=== PATIENT | female | born 1970 | race Caucasian/White ===

== ENCOUNTER 2021-02-12 06:45 | Emergency (ER) | payer MEDICAID, SELFPAY ==
--- NOTE | 2021-02-12 06:46 | EKG12_ITS ---
Test Reason : CHEST PAIN Blood Pressure : / mmHG Vent. Rate : 072 BPM Atrial Rate : 072 BPM P-R Int : 138 ms QRS Dur : 076 ms QT Int : 416 ms P-R-T Axes : 056 059 025 degrees QTc Int : 455 ms Normal sinus rhythm Normal ECG Confirmed by KASH COLBERT, PRAMOD ([id number]), publishing editor DRAKE SIMON ([id number]) on 02/13/2021 12:48:54 PM Referred By: RAMIRO Confirmed By:ROSA HEWITT MD
[2021-02-12 06:48] VITALS: BP 122/96; PULSE 74; RESP 26; TEMP 35.9; O2SAT 96; BMI 23.5
--- NOTE | 2021-02-12 06:48 | NURSING ---
NO OLD EKGS
[2021-02-12 06:54] VITALS: O2SAT 100
[2021-02-12 06:59] LABS: Absolute Lymphocyte Count 4.65 X10^3/uL (0.83-4.51); Absolute Neutrophil Count 5.5 X10^3/uL (2.0-7.7); Basophil# 0.06 X10^3/uL; Basophil% 0.5 % (0-1); Eosinophil# 0.17 X10^3/uL; Eosinophils% 1.5 % (0-5); Hematocrit 42.2 % (37-47); Hemoglobin 14.2 g/dL (12.0-15.0); Lymphocyte # 4.65 X10^3/ul (0.83-4.51); Lymphocyte % 41.7 % (19-41); Mean Corp Hgb Conc 33.6 g/dL (32-36); Mean Corpuscular Hgb 27.4 pg (27.0-32.0); Mean Corpuscular Volume 81.5 fL (81-99); Mean Platelet Vol. 9.5 fl (6.2-12.0); Monocyte# 0.68 X10^3/uL; Monocyte% 6.1 % (0-10); NRBC Flagged by Analyzer 0 % (0-5); Neutrophil # 5.54 X10^3/uL (2.7-7.7); Neutrophil % 49.8 % (47-70); Platelet Count 354 K/mm3 (150-450); RBC Distribution Width CV 12.3 % (11.6-14.6); RBC Distribution Width SD 36.4 fl (35.1-43.9); Red Blood Count 5.18 M/mm3 (4.2-5.4); White Blood Count 11.1 K/mm3 (4.4-11.0)
--- NOTE | 2021-02-12 07:05 | RAD_ITS ---
STUDY: X-RAY CHEST REASON FOR EXAM: Female, 50 years old. acute onset cp, radiates to the back TECHNIQUE: Single AP portable view of the chest. COMPARISON: None. FINDINGS: There are no confluent pulmonary infiltrates. There is no demonstrated pleural abnormality. Normal size heart. Normal mediastinum and speedy. Normal visualized aortic arch and descending thoracic aorta. There are no demonstrated acute fractures or destructive bone lesions. There is no demonstrated abnormality of the visualized soft tissue structures of the upper abdomen. RAD/Chest 1 View (Portable) IMPRESSION: Normal x-ray examination of the chest. Electronically Signed: Wilner Pop MD at 7:36 EDT , Service support ,
--- NOTE | 2021-02-12 07:12 | CT_ITS ---
STUDY: CTA CHEST REASON FOR EXAM: Female, 50 years old. CHEST PAIN RADIATION DOSAGE (If Supplied By Facility): CTDIvol = ( 9.1 ) mGy, DLP = ( 155.11 ) mGycm TECHNIQUE: The examination was performed with the intravenous administration of IV 100mL Isovue-370. Post-processing of the angiographic images was performed, with multiplanar reformation and 3D reconstruction. Individualized dose optimization techniques were used for this CT. COMPARISON: None. FINDINGS: Normal enhancement of the main pulmonary artery and right and left pulmonary arteries. Normal enhancement of the bilateral peripheral pulmonary arteries. There is no demonstrated pulmonary embolism. Normal thoracic aorta and visualized great vessels. There is no demonstrated aortic dissection. Normal heart and pericardium. Normal mediastinum. Normal hilar regions. Normal visualized trachea and bronchi. The lungs are well expanded. Normal pulmonary parenchyma. Normal pleura. Normal chest wall structures. Normal osseous structures. No significant incidental abnormality of the visualized upper abdomen. CT/CTA Chest W/WO Contrast IMPRESSION: No central or segmental pulmonary embolism. Electronically Signed: Nicolas Cheema MD ([place]) at 8:09 EDT , Service support ,
--- NOTE | 2021-02-12 07:14 | ED.VIS.CHEST ---
HPI History of Present Illness Chief Complaint: Chest Pain Informant: patient Onset/Context/Timing Onset: Today and Hours Activity at onset: sudden Timing: Continuous Quality: Positive for Burning and Sharp Location: Substernal Current Severity: Moderate Maximum Severity: Moderate Worsened By: Nothing Relieved By: Nothing Narrative Narrative: 50-year-old female without any significant past medical history. No prior cardiac history no prior PE risk factors for PE. States she awoke at 530 this morning with midsternal chest pain radiating into her back. She denies any radiation to her jaw or arms. Associated nausea and diaphoresis. Mild shortness of breath. She denies any recent illness. She denies any recent exertional chest pain or shortness of breath. She denies any history of DVT or PE. She denies any recent travel, surgery or immobilization. She states the pain is midsternal and lower to the epigastric region. No history of reflux or pancreatitis. No gallbladder or liver history. She denies any melena. Prior Similar Symptoms: No Recent Illness/Hospitalization: No CVD Risk Factors: Negative for Hypertension, Diabetes, Hypercholesterolemia, Family History 1' </=55 and Smoking PE Risk Factors: Negative for Recent Travel/Surgery, Recent Immobilization, Prior DVT or PE, Cancer and OCP + Smoking + >/=35 TAD Risk Factors: Negative for Marfan's Syndrome, Hypertension and Family History PFSH PFSH Home Medications bupropion HCl [Wellbutrin Xl] 300 mg PO DAILY 09/12/16 [History Last Taken Unknown] dextroamphetamine-amphetamine 1 tab PO DAILY 02/12/21 [History Last Taken Unknown] pantoprazole 40 mg PO DAILY 02/12/21 [History Last Taken Unknown] Allergy/AdvReac Type Severity Reaction Status Date / Time morphine AdvReac Other Verified 02/12/21 06:47 Social History Smoking Status: Never smoker ROS ROS ED ROS Narrative Patient denies any recent illness. Review of Systems ROS Unobtainable: Denies due to encephalopathy Constitutional Constitutional ED: Denies fever(s) or weight loss Eyes Eyes: Denies none ENT ENT ED: Denies ear pain or sore throat Cardiovascular Cardiovascular: Reports chest pain; Denies as per HPI, palpitations or racing heartbeat Respiratory/Chest Respiratory/Chest: Reports dyspnea; Denies cough, dyspnea on exertion or sputum Gastrointestinal Gastrointestinal: Reports nausea; Denies abdominal pain, constipation, diarrhea, melena or vomiting Genitourinary Genitourinary ED: Denies dysuria or hematuria Musculoskeletal Musculoskeletal: Reports back pain; Denies arthralgias or myalgias Integumentary Denies abscess or rash Neurologic Neurologic: Denies headache(s) Psychiatric Psychiatric: Denies depression Endocrine Endocrinology: Denies polyuria Hematologic/Lymphatic Hematologic/Lymphatic: Denies easy bruising Allergic/Immunologic Allergic/Immunologic ED: Denies urticaria EXAM Physical Exam Narrative Exam Narrative: Middle-aged female complaining of midsternal chest pain that radiates into her back. Vital signs are stable she is afebrile. Pulse ox 96% on room air no signs of hypoxia. HEENT exam unremarkable. Neck nontender. Lungs clear to auscultation bilaterally. Heart regular rhythm rate about 70 no murmur. Chest wall nontender. Abdomen soft nontender. No epigastric or right upper quadrant tenderness. Nondistended. Moving all 4 extremities. Calves are nontender without edema or cords. Back nontender. Neurologically she is awake and alert with no focal motor deficits. Radial pulses are equal and symmetrical. Const Vital Signs: 02/12/21 06:48 02/12/21 06:51 02/12/21 06:53 Temperature 96.7 F L Temperature Source Temporal Pulse Rate 74 Respiratory Rate 26 H Respiratory Effort Normal Respiratory Pattern Normal Blood Pressure 122/96 H Blood Pressure Mean 104 Pulse Ox 96 Oxygen Delivery Method Room Air Room Air Oxygen Flow Rate (L/min) 02/12/21 06:54 02/12/21 08:00 02/12/21 09:00 Temperature Temperature Source Pulse Rate 66 60 Respiratory Rate 17 16 Respiratory Effort Respiratory Pattern Blood Pressure 124/80 H 125/80 H Blood Pressure Mean 94 95 Pulse Ox 100 98 97 Oxygen Delivery Method Nasal Cannula Room Air Room Air Oxygen Flow Rate (L/min) 2 General Appearance ED: Negative for pallor HEENT Reports moist mucous membranes normocephalic and atraumatic; Negative for trauma or tenderness Eyes PERRL and EOMs intact bilaterally General Eye ED: Negative for pale conjunctiva Neck no lymphadenopathy, supple and no JVD General: Negative for tenderness Chest Wall inspection of chest normal and palpation of chest normal Chest: Negative for tenderness Resp normal respiratory effort and clear to auscultation bilaterally Effort and Inspection: respiratory distress Cardio regular rate, regular rhythm, S1 normal heart sound, S2 normal heart sound and no murmurs Rate: Negative for bradycardia or tachycardic Rhythm: Negative for abnormal rhythm GI normal to inspection, nondistended, normoactive bowel sounds, soft to palpation, non-tender, non-distended and no masses; Negative for hepatosplenomegaly Auscultation: Negative for hyperactive bowel sounds Back/Spine no CVA tenderness; Negative for no thoracic nor lumbar tenderness General Back: Negative for CVA tenderness Extremity normal to inspection General Extremety ED: Negative for edema, pulses abnormal or tenderness General Extremity: Negative for edema or pulses abnormal Neuro oriented x3, CN's II-XII intact bilaterally and no sensory deficits noted Sensorium / Orientation: awake, alert, oriented to person, oriented to place and oriented to time Motor Exam: strength 5/5 throughout and strength abnormal Psych mental status grossly normal Attitude: No agitated Mood & Affect: Negative for depressed or tearful Skin no rashes or lesions noted and no wounds General Skin Exam: Negative for jaundice or pallor Heart Score History: Moderately Suspicious Age: >45 - <65 years Risk Factors: No Risk Factors Troponin: </= Normal Limit Score: 2 MDM MDM MDM Narrative Medical decision making narrative: 50-year-old female no significant cardiac nor DVT nor PE risk factors. Presents with midsternal chest pain. Cardiac etiology versus reflux versus dissection versus PE versus pancreatitis or gallbladder disease are all in the differential. Initial EKG was unremarkable. She will be treated with IV fentanyl for pain and Zofran for nausea. Repeat exam at 8:15 AM patient is doing well. Feels much better after the IV fentanyl and Zofran. We have gone over all of her test results. Patient did not want to be admitted. She will stay for a second troponin. If that is okay she will be discharged home with chest pain of uncertain etiology for further outpatient work-up. Second troponin was negative. Repeat exam patient is doing well at 10:10 AM and will do outpatient follow-up. Return if worse. Lab Data Lab results narrative: Initial EKG unremarkable. CBC showed a white count of 11. Hemoglobin 14. No bands. Chemistries unremarkable. Liver enzymes unremarkable. Troponin normal. Portable chest x-ray 1 view interpreted by myself shows no acute abnormality. Lipase is slightly above normal at 416 but not high enough for pancreatitis. CT of the chest is read by the radiologist and reviewed by me I actually went down to radiology to review the CAT scan shows no acute abnormality. Labs: Laboratory Results - last 24 hr 02/12/21 02/12/21 02/12/21 06:50 06:50 06:50 WBC 11.1 H RBC 5.18 Hgb 14.2 Hct 42.2 MCV 81.5 MCH 27.4 MCHC 33.6 RDW Std Deviation 36.4 RDW Coeff of Jason 12.3 Plt Count 354 MPV 9.5 Immature Gran % (Auto) 0.400 Neut % (Auto) 49.8 Lymph % (Auto) 41.7 H [place] % (Auto) 6.1 Eos % (Auto) 1.5 Baso % (Auto) 0.5 Absolute Neuts (auto) 5.5 Absolute Lymphs (auto) 4.65 H Nucleated RBC % 0 Sodium 138 Potassium 3.1 L Chloride 106 Carbon Dioxide 25.0 Anion Gap 7 BUN 11 Creatinine 0.89 Estim Creat Clear Calc 72.37 Est GFR (MDRD) Af Amer 86 Est GFR (MDRD) Non-Af 71 BUN/Creatinine Ratio 12.3 Glucose 150 H Calcium 9.1 Total Bilirubin 0.70 Direct Bilirubin 0.27 AST 68 H ALT 41 Alkaline Phosphatase 87 Troponin I < 0.015 Total Protein 6.7 Albumin 3.6 Globulin 3.1 Lipase 02/12/21 02/12/21 06:50 08:50 WBC RBC Hgb Hct MCV MCH MCHC RDW Std Deviation RDW Coeff of Jason Plt Count MPV Immature Gran % (Auto) Neut % (Auto) Lymph % (Auto) [place] % (Auto) Eos % (Auto) Baso % (Auto) Absolute Neuts (auto) Absolute Lymphs (auto) Nucleated RBC % Sodium Potassium Chloride Carbon Dioxide Anion Gap BUN Creatinine Estim Creat Clear Calc Est GFR (MDRD) Af Amer Est GFR (MDRD) Non-Af BUN/Creatinine Ratio Glucose Calcium Total Bilirubin Direct Bilirubin AST ALT Alkaline Phosphatase Troponin I < 0.015 Total Protein Albumin Globulin Lipase 416 H Radiography Chest X-Ray - ED: 1 View, Read by ED Physician, Normal, Heart, Lungs, Mediastinum, Bony Structures and No Acute Disease Diagnostic Testing: Radiology Impression Chest X-Ray 02/12/21 07:05 IMPRESSION: Normal x-ray examination of the chest. Electronically Signed: Wilner Pop MD at 7:36 EDT , Service support , Chest CTA 02/12/21 07:12 IMPRESSION: No central or segmental pulmonary embolism. Electronically Signed: Nicolas Cheema MD ([place]) at 8:09 EDT , Service support , Rhythm Strip Rhythm Strip: Sinus Rhythm Rate: 72 Ectopy: None EKG Initial EKG: Attestation: I personally reviewed and interpreted this EKG as follows: Interpretation: Sinus Rhythm and No Acute Injury Pattern Comments: Normal sinus rhythm rate of 72 with no acute signs of PR nor ischemia. No S1 every 3 T3. Prior EKG tracings: not available for review Prior: No Prior Follow-up EKG: Attestation: I personally reviewed and interpreted this EKG as follows: Interpretation: Sinus Rhythm and No Acute Injury Pattern Prior EKG tracings: available for review Prior: Unchanged Treatment and Re-Evaluation Comments:: Repeat EKG showed a normal sinus rhythm rate of 64 with again no signs of PR nor ischemia and unchanged from the first. Discharge Plan Triage Chief Complaint: Chest Pain ED Provider: Jose Enrique Sanchez Dx/Rx/DC Orders Clinical Impression: Chest pain of uncertain etiology Instructions: ED Chest Pain, Uncertain Cause Prescriptions: No Action bupropion HCl [Wellbutrin XL] 300 MG tablet extended release 24 hr 300 mg PO DAILY RF: 0 dextroamphetamine-amphetamine 10 mg tablet 1 tab PO DAILY RF: 0 pantoprazole 40 mg tablet,delayed release (DR/EC) 40 mg PO DAILY RF: 0 Referrals: Carrillo Kendrick [Other] Surinder Sinclair MD [STAFF PHYSICIAN] - As soon as possible Satish Mcneil MD [STAFF PHYSICIAN] - As soon as possible Activity Restrictions/Additional Instructions: Your work-up today including 2 EKGs, CAT scan and chest x-ray along with all the lab work was unremarkable. Call and follow-up with either the local primary care physician Dr. Satish Mcneil or the masonry installer Dr. Surinder Sinclair for further evaluation and possible stress testing. Return to the emergency department if you feel worse. Disposition Disposition: Home, self care
[2021-02-12] MEDS: fentaNYL 100 MCG/2 ML Ampul 50 MCG IV (07:20)
[2021-02-12] MEDS: Ondansetron 4 MG/2 ML Vial IV (07:20)
[2021-02-12 07:21] LABS: Anion Gap 7 (5-15); BUN 11 mg/dL (7-18); BUN/Creat Ratio 12.3 RATIO (10-20); Calcium,Total 9.1 mg/dL (8.5-10.1); Chloride 106 mmol/L (98-107); Creatinine, Serum 0.89 mg/dL (0.55-1.02); EST Glomerular Filtration Rate 71 mL/min (>60); Est Glom Filt Rate - Afr Amer 86 mL/min (>60); Estimated Creatinine Clearance 72.37 ml/min; Glucose 150 mg/dL (74-106); Potassium 3.1 mmol/L (3.5-5.1); Sodium Level 138 mmol/L (136-145)
--- NOTE | 2021-02-12 07:23 | EKG12_ITS ---
Test Reason : CP REPEAT Blood Pressure : / mmHG Vent. Rate : 064 BPM Atrial Rate : 064 BPM P-R Int : 138 ms QRS Dur : 078 ms QT Int : 432 ms P-R-T Axes : 062 050 033 degrees QTc Int : 445 ms Normal sinus rhythm Normal ECG Confirmed by KASH COLBERT, PRAMOD ([id number]), state editor DRAKE SIMON ([id number]) on 02/13/2021 12:48:40 PM Referred By: DEVIN Confirmed By:ROSA HEWITT MD
[2021-02-12 07:33] LABS: AST(SGOT) 68 U/L (15-37); Alanine Aminotransfer ALT/SGPT 41 U/L (13-56); Albumin, Serum 3.6 g/dL (3.2-5.0); Alkaline Phosphatase 87 U/L (45-117); Bilirubin, Direct 0.27 mg/dL (0.00-0.30); Globulin 3.1 g/dL (2.2-4.2); Protein, Total 6.7 g/dL (6.4-8.2)
[2021-02-12 08:00] VITALS: BP 124/80; PULSE 66; RESP 17; O2SAT 98
[2021-02-12 08:14] LABS: Lipase 416 U/L (73-393)
[2021-02-12 09:00] VITALS: BP 125/80; PULSE 60; RESP 16; O2SAT 97
[2021-02-12 10:15] VITALS: BP 113/75; PULSE 63; RESP 13; O2SAT 97
== END 2021-02-12 10:28 | disposition home or self-care (01) ==
PROVIDERS: Emergency Provider Emergency Medicine
DX: R07.2 Precordial pain (principal)
CPT/HCPCS: 36415; 71045; 71275; 80048; 80076; 83690; 84484; 85025; 93005; 96374; 96375; 99285; Q9967; A4216; J2405

== ENCOUNTER 2023-08-30 07:21 | Emergency (ER) | payer OTHER, SELFPAY ==
[2023-08-30 07:22] VITALS: BP 143/89; PULSE 99; RESP 20; TEMP 36.8; O2SAT 99; BMI 24.7
--- NOTE | 2023-08-30 07:35 | CT_ITS ---
STUDY: CT ABDOMEN AND PELVIS WITH CONTRAST REASON FOR EXAM: Female, 53 years old. Nausea, vomiting, diarrhea RADIATION DOSAGE (If Supplied By Facility): CTDIvol = ( 10.65 ) mGy, DLP = ( 538.4 ) mGycm TECHNIQUE: Transaxial images were obtained from the dome of the diaphragm to the symphysis pubis without oral contrast. IV 100mL Isovue-370 was administered. Sagittal and coronal images were reconstructed. Individualized dose optimization techniques were used for this CT. COMPARISON: None. FINDINGS: The visualized lung bases are unremarkable. The visualized portions of the heart are within normal limits. Normal liver. Normal gallbladder and extrahepatic biliary system. Normal spleen. Normal pancreas. Normal bilateral adrenal glands. Normal right kidney. Normal left kidney. Normal visualized stomach. Fluid-filled nondilated small bowel loops as well as fluid in the right hemicolon. The appendix is visualized and appears normal. Normal abdominal aorta. Normal inferior vena cava. Normal retroperitoneum. Normal urinary bladder. Normal abdominal wall. Normal osseous structures. CT/Abdomen/Pelvis W IV Cont ONLY IMPRESSION: Fluid-filled nondistended small bowel and right hemicolon. This may be due to diarrhea. Electronically Signed: Ender Benito MD at 9:23 EST ,
--- NOTE | 2023-08-30 07:38 | ED.VIS.GI ---
HPI HPI - GI History of Present Illness Chief Complaint: Nausea/Vomiting/Diarrhea Narrative Narrative: 53-year-old female past medical history of uterine ablation, GERD, and depression presents with nausea, vomiting, and diarrhea that she has had since Wednesday of last week, approximately 6 days ago. She relates history that she and her boyfriend were on a cruise and she became ill having multiple episodes of diarrhea. She received IV fluids, Zofran, and something for her diarrhea. She thought maybe she had food poisoning or something that she ate while on the cruise. However, in the last 24 hours she has had multiple episodes of diarrhea and watery stool without blood in it. She has been vomiting and vomits at least once a day without any blood in her emesis, but is only currently dry heaving. She states whenever she tries to drink or eat anything, it shoots right through. She does have diffuse crampy abdominal pain. No prior surgeries. No exacerbating or alleviating factors. No fevers or chills. [facility] Medical History (Updated 08/30/23 @ 09:43 by Tien Lopez MD) GERD (gastroesophageal reflux disease) Home Medications bupropion HCl 300 mg 24 hr tablet, extended release (Wellbutrin XL) 300 mg PO DAILY 09/12/16 [History Last Taken Unknown] dextroamphetamine-amphetamine 10 mg tablet 1 tab PO DAILY 02/12/21 [History Last Taken Unknown] pantoprazole 40 mg tablet,delayed release 40 mg PO DAILY 02/12/21 [History Last Taken Unknown] ciprofloxacin HCl 500 mg tablet (Cipro) 500 mg PO BID 5 days #10 tabs 08/30/23 [Rx Last Taken Unknown] promethazine 25 mg tablet 25 mg PO Q6H PRN nausea and vomiting #15 tabs 08/30/23 [Rx Last Taken Unknown] Allergy/AdvReac Type Severity Reaction Status Date / Time morphine AdvReac Other Verified 08/30/23 07:22 Social History Smoking Status: Never smoker ROS ROS ED ROS Narrative Constitutional: No fever, no chills. HEENT: No sore throat. No neck pain. No loss of vision. No rhinorrhea. Cardiovascular: No chest pain. No palpitations. No pedal edema. Respiratory: No cough, no shortness of breath. Abdominal: Abdominal cramping/abdominal pain. Did have nausea and vomiting daily for 6 days. Currently dry heaving. Multiple episodes of watery stool. No blood in stool. Genitourinary: No dysuria. No hematuria. Musculoskeletal: No myalgias. No arthralgias. Neurologic: No headaches. No dizziness. No lightheadedness. Skin: No rash. No change in color. Psychiatric: No depression. No anxiety. EXAM Physical Exam Narrative Exam Narrative: Afebrile. Vital signs noted. HEENT: Normocephalic. Atraumatic. PERRL, EOMI. Neck soft and supple. No point tenderness or step off. Cardiovascular: Regular rate and rhythm. No murmurs, rubs, or gallops appreciated. Respiratory: No tachypnea. Lungs clear to auscultation bilaterally. Gastrointestinal: Abdomen soft, nontender, with normoactive bowel sounds. No rebound or guarding. Neurological: Awake. Alert. Nonfocal, nonlateralizing. Skin: No rash. Normal color. No pallor. Musculoskeletal: No pedal edema. Full range of motion extremities. Const Vital Signs: 08/30/23 07:22 Temperature 98.2 F Temperature Source Temporal Pulse Rate 99 Respiratory Rate 20 H Blood Pressure 143/89 H Blood Pressure Mean 107 Pulse Ox 99 Oxygen Delivery Method Room Air MDM MDM MDM Narrative Medical decision making narrative: Differential diagnosis is gastroenteritis versus colitis. There is also concern for dehydration with her free when nausea and vomiting and diarrhea. Lower on the differential is C. difficile. She may have Giardia but this is also lower on the differential. She has not had recent antibiotics. CBC, CMP, and lipase will be checked to help rule out pancreatitis but she is nontender on examina tion in the epigastrium. I do feel CT imaging is indicated to look for inflammation of the colon as she may have an infectious colitis. I reviewed her laboratory work from today and she has a normal white count of 8.4, hemoglobin slightly hemoconcentrated at 15.4 with hematocrit 45.8, platelet count normal at 328. Her electrolyte panel shows chloride slightly elevated at 108 but normal sodium of 143, normal potassium of 3.5. BUN is normal at 8 with creatinine 0.82, no evidence of profound dehydration. Her glucose is appropriately elevated at 103 with a normal anion gap of 6. LFTs are normal with an AST of 16 and ALT of 19, lipase also normal at 23. Patient reports that she had a small amount of stool that was not enough to send for sample. Her nausea has essentially resolved after Zofran. I reviewed her CT report which shows blood-filled distended small bowel and right hemicolon consistent with diarrhea, no mucosal thickening. As her diarrhea has been ongoing for 6 days, I do feel that she should be treated for traveler's diarrhea. She was given her first dose of ciprofloxacin here in the emergency department and a prescription written to take 500 mg twice a day for the next 5 days. She was also given Phenergan for nausea and vomiting as well. I feel she can be discharged safely home with follow-up to her primary care provider. I do not feel she requires observation or admission at this time. Return instructions to the emergency department were reviewed. Disposition is discharged home in stable condition. History & Record Review Discussion w/independent historian: Patient Additional record(s) reviewed:: Prior ED visit Lab Data Attestation: I reviewed the patient's lab results. Labs: Laboratory Results - last 24 hr 08/30/23 07:55 WBC 8.4 RBC 5.67 H Hgb 15.4 H Hct 45.8 MCV 80.8 L MCH 27.2 MCHC 33.6 RDW Std Deviation 36.4 RDW Coeff of Jason 12.7 Plt Count 328 MPV 9.6 Immature Gran % (Auto) 0.400 Neut % (Auto) 67.1 Lymph % (Auto) 16.8 L [place] % (Auto) 11.8 H Eos % (Auto) 3.4 Baso % (Auto) 0.5 Absolute Neuts (auto) 5.7 Absolute Lymphs (auto) 1.41 Nucleated RBC % 0 Sodium 143 Potassium 3.5 Chloride 108 H Carbon Dioxide 29.0 Anion Gap 6 BUN 8 Creatinine 0.82 Estim Creat Clear Calc 70.09 Est GFR (MDRD) Af Amer 94 Est GFR (MDRD) Non-Af 78 BUN/Creatinine Ratio 9.7 L Glucose 103 Calcium 8.4 L Total Bilirubin 1.00 AST 16 ALT 19 Alkaline Phosphatase 74 Total Protein 6.7 Albumin 3.6 Globulin 3.1 Albumin/Globulin Ratio 1.2 Lipase 23 Radiography Diagnostic Testing: Clinical Impression(s) from Imaging Studies Abdomen/Pelvis CT 08/30/23 07:35 IMPRESSION: Fluid-filled nondistended small bowel and right hemicolon. This may be due to diarrhea. Electronically Signed: Ender Benito MD at 9:23 EST , Discharge Plan Triage Chief Complaint: Nausea/Vomiting/Diarrhea ED Provider: Tien Lopez Dx/Rx/DC Orders Clinical Impression: Diarrhea, Nausea and vomiting Instructions: ED Traveler's Diarrhea (Adult), ED Vomit Diarrhea [place] Adult Prescriptions: New ciprofloxacin HCl [Cipro] 500 mg tablet 500 mg PO BID 5 Days Qty: 10 0RF promethazine 25 mg tablet 25 mg PO Q6H PRN (Reason: nausea and vomiting) Qty: 15 0RF No Action bupropion HCl [Wellbutrin XL] 300 MG tablet extended release 24 hr 300 mg PO DAILY dextroamphetamine-amphetamine 10 mg tablet 1 tab PO DAILY Patient Comments: TAKE 1 TABLET BY MOUTH ONCE DAILY pantoprazole 40 mg tablet,delayed release (DR/EC) 40 mg PO DAILY Patient Comments: TAKE 1 TABLET BY MOUTH ONCE DAILY Primary Care Provider: Care Physician,No Primary Referrals: Carrillo Kendrick [Other] - 3-5 Days if not improving Disposition Disposition: Home, Self Care
[2023-08-30] MEDS: Ondansetron 4 MG/2 ML Vial IV (07:59)
[2023-08-30] MEDS: 0.9% Normal Saline (1000mL) 1,000 ML 1000 ML IV (07:59)
[2023-08-30 08:13] LABS: Absolute Lymphocyte Count 1.41 X10^3/uL (0.83-4.51); Absolute Neutrophil Count 5.7 X10^3/uL (2.0-7.7); Basophil# 0.04 X10^3/uL; Basophil% 0.5 % (0-1); Eosinophil# 0.29 X10^3/uL; Eosinophils% 3.4 % (0-5); Hematocrit 45.8 % (37-47); Hemoglobin 15.4 g/dL (12.0-15.0); Lymphocyte # 1.41 X10^3/ul (0.83-4.51); Lymphocyte % 16.8 % (19-41); Mean Corp Hgb Conc 33.6 g/dL (32-36); Mean Corpuscular Hgb 27.2 pg (27.0-32.0); Mean Corpuscular Volume 80.8 fL (81-99); Mean Platelet Vol. 9.6 fl (6.2-12.0); Monocyte# 0.99 X10^3/uL; Monocyte% 11.8 % (0-10); NRBC Flagged by Analyzer 0 % (0-5); Neutrophil # 5.65 X10^3/uL (2.7-7.7); Neutrophil % 67.1 % (47-70); Platelet Count 328 K/mm3 (150-450); RBC Distribution Width CV 12.7 % (11.6-14.6); RBC Distribution Width SD 36.4 fl (35.1-43.9); Red Blood Count 5.67 M/mm3 (4.2-5.4); White Blood Count 8.4 K/mm3 (4.4-11.0)
[2023-08-30 08:32] LABS: ALB/GLOB Ratio 1.2 RATIO (0.9-2.4); AST(SGOT) 16 U/L (15-37); Alanine Aminotransfer ALT/SGPT 19 U/L (13-56); Albumin, Serum 3.6 g/dL (3.2-5.0); Alkaline Phosphatase 74 U/L (45-117); Anion Gap 6 (5-15); BUN 8 mg/dL (7-18); BUN/Creat Ratio 9.7 RATIO (10-20); Calcium,Total 8.4 mg/dL (8.5-10.1); Chloride 108 mmol/L (98-107); Creatinine, Serum 0.82 mg/dL (0.55-1.02); EST Glomerular Filtration Rate 78 mL/min (>60); Est Glom Filt Rate - Afr Amer 94 mL/min (>60); Estimated Creatinine Clearance 70.09 ml/min; Globulin 3.1 g/dL (2.2-4.2); Glucose 103 mg/dL (74-106); Lipase 23 U/L (13-75); Potassium 3.5 mmol/L (3.5-5.1); Protein, Total 6.7 g/dL (6.4-8.2); Sodium Level 143 mmol/L (136-145)
[2023-08-30] MEDS: Ciprofloxacin 500 MG Tablet PO (10:12)
== END 2023-08-30 10:17 | disposition home or self-care (01) ==
PROVIDERS: Emergency Provider Emergency Medicine; Visit Provider Emergency Medicine
DX: R11.2 Nausea with vomiting, unspecified (principal); R19.7 Diarrhea, unspecified; K21.9 Gastro-esophageal reflux disease without esophagitis; Z79.899 Other long term (current) drug therapy
CPT/HCPCS: 74177; 80053; 83690; 85025; 87177; 87209; 87493; 87506; 96361; 96374; 99283; J7030; Q9967; A4216; J2405